=== PATIENT | female | born 1955 | race Two or more races ===

== ENCOUNTER 2017-08-10 16:41 | Emergency (ER) | payer MEDICAID ==
[~2017-08-10] VITALS: Ht 154.9 cm; Wt 93.4 kg
[~2017-08-10 16:41] MED LIST: CLON0.1T PO; HCTZ25T PO; INSU1INJ4 SC; INSUINJ SC; LOSA100T27 PO; METF-370 PO
[2017-08-10] MEDS ORDERED: cloNIDine HCL 0.1 MG TAB PO ONE (17:00)
[2017-08-10 17:47] LABS: Basophils # (auto) 0.1 uL; Basophils % (auto) 0.6 % (0.0-2.0); Eosinophils # (auto) 0.2 uL; Eosinophils % (auto) 1.6 % (0.0-7.0); Hematocrit 41.4 % (36.0-46.0); Hemoglobin 13.8 g/dL (12.2-16.2); Lymphocytes # (auto) 4.3 uL; Lymphocytes % (auto) 33.9 % (10.0-50.0); Mean Corpuscular Hemoglobin 30.6 pg (28.0-32.0); Mean Corpuscular Hgb Conc. 33.5 g/dL (32.0-36.0); Mean Corpuscular Volume 91.5 fL (80.0-100.0); Monocytes # (auto) 0.5 uL; Monocytes % (auto) 3.9 % (0.0-12.0); Neutrophils # (auto) 7.6 uL; Nucleated Red Blood Cells % 0.1 %; Platelet Count (auto) 410 10^3/uL (140-450); Red Blood Cells 4.52 10^6/uL (4.0-5.20); Red Cell Distribution Width 13.8 % (11.8-14.3); White Blood Cell 12.7 10^3/uL (4.4-10.8)
[2017-08-10 17:54] LABS: Alanine Aminotransferase 33 U/L (13-56); Albumin 3.9 g/dL (3.4-5.0); Anion Gap 7 (5-15); Aspartate Aminotransferase 19 U/L (15-37); Blood Urea Nitrogen 11 mg/dL (7-18); Calcium 9.1 mg/dL (8.5-10.1); Carbon Dioxide 28 mmol/L (21-32); Chloride 99 mmol/L (98-107); GFR African American 73 mL/min; GFR Non-African American 60 mL/min; Glucose 260 mg/dL (74-106); Potassium 3.9 mmol/L (3.5-5.1); Sodium 134 mmol/L (136-145)
[2017-08-10 17:59] LABS: Alkaline Phosphatase 103 U/L (45-117); Bilirubin, Total 0.2 mg/dL (0.2-1.0); Total Protein 8.4 g/dL (6.4-8.2)
[2017-08-10 21:00] VITALS: BP 147/79
== END 2017-08-10 21:39 | disposition home or self-care (01) ==
LOC: ER 16:44
DX: I10 Essential (primary) hypertension (principal); R07.9 Chest pain, unspecified; E11.9 Type 2 diabetes mellitus without complications; E78.5 Hyperlipidemia, unspecified; I25.2 Old myocardial infarction; Z79.4 Long term (current) use of insulin
CPT/HCPCS: 36415; 70450; 71046; 80053; 84484; 85025; 93005

== ENCOUNTER 2018-08-30 00:07 | Emergency (ER) | payer MEDICAID ==
[~2018-08-30] VITALS: Ht 154.9 cm; Wt 92.1 kg
[~2018-08-30 00:07] MED LIST changes: +LOSA-49 PO; -LOSA100T27 PO
[2018-08-30 00:32] VITALS: BP 169/77
== END 2018-08-30 02:30 | disposition left against medical advice (07) ==
LOC: ER 00:11
DX: I10 Essential (primary) hypertension (principal); Z53.21 Procedure and treatment not carried out due to patient leaving prior to being seen by health care provider
CPT/HCPCS: 93005

== ENCOUNTER 2021-07-07 00:42 | Inpatient (IN) | payer MEDICAID ==
[~2021-07-07] VITALS: Ht 162.6 cm; Wt 95.1 kg
[~2021-07-07 00:42] MED LIST changes: +AML5T PO; +ATOR20TA50 PO; -CLON0.1T PO; -HCTZ25T PO; +HYDR25TA5 PO; +INSU1INJ19 SC; -INSU1INJ4 SC; +INSU70IN3 SC; +LOSA-39 PO; -LOSA-49 PO; +METO1TAB77 PO
[2021-07-07 02:15] LABS: Basophils # (auto) 0.1 10 ^3/uL (0-0.2); Basophils % (auto) 1.1 % (0.0-2.0); Eosinophils # (auto) 0.3 10 ^3/uL (0-0.8); Eosinophils % (auto) 2.9 % (0.0-7.0); Hematocrit 40.8 % (36.0-46.0); Hemoglobin 13.8 g/dL (12.2-16.2); Lymphocytes # (auto) 5.8 10 ^3/uL (0.4-5.4); Lymphocytes % (auto) 52.5 % (10.0-50.0); Mean Corpuscular Hemoglobin 30.1 pg (28.0-32.0); Mean Corpuscular Hgb Conc. 33.8 g/dL (32.0-36.0); Mean Corpuscular Volume 89.2 fL (80.0-100.0); Monocytes # (auto) 0.5 10 ^3/uL (0-1.3); Monocytes % (auto) 4.6 % (0.0-12.0); Neutrophils # (auto) 4.3 10 ^3/uL (1.6-8.6); Neutrophils % (auto) 38.9 % (37.0-80.0); Nucleated Red Blood Cells % 0.2 %; Red Blood Cells 4.58 10^6/uL (4.0-5.20); Red Cell Distribution Width 13.6 % (11.8-14.3); White Blood Cell 11.1 10^3/uL (4.4-10.8)
[2021-07-07 02:53] LABS: Albumin 3.1 g/dL (3.4-5.0); Calcium 8.4 mg/dL (8.5-10.1); Potassium 3.1 mmol/L (3.5-5.1)
[2021-07-07 03:00] LABS: BUN/Creatinine Ratio 17.3; Bilirubin, Total 0.2 mg/dL (0.2-1.0); Total Protein 7.2 g/dL (6.4-8.2)
[2021-07-07] MEDS ORDERED: ASPirin 325 MG TAB PO ONE (05:45)
[2021-07-07] MEDS ORDERED: ONDANSETRON HCL 4 MG/2 ML VIAL IV PRN (06:00)
[2021-07-07] MEDS ORDERED: NITROGLYCERIN 0.4 MG SL TAB SL PRN (06:00)
[2021-07-07] MEDS ORDERED: MORPHINE SULFATE INJECTION 2 MG/ML SYRG IV PRN (06:00)
[2021-07-07] MEDS ORDERED: TEMAZEPAM 15 MG CAP PO PRN (06:00)
[2021-07-07] MEDS ORDERED: ACETAMINOPHEN 325 MG TAB PO PRN (06:00)
[2021-07-07] MEDS ORDERED: DEXTROSE (50%) 50ML SYRG IV PRN (06:00)
[2021-07-07] MEDS ORDERED: LABETALOL HCL 5 MG/ML 4ML SYRINGE IV ONE (06:15)
[2021-07-07] MEDS: InsuLIN REG 1unit/0.01ml Soln (100units/ml) SC SCH ×4 (07:00→21:52)
[2021-07-07] MEDS: ACCU-CHEK COMFORT CURVE STRIP VI SCH ×4 (07:02→21:52)
[2021-07-07] MEDS ORDERED: LOSARTAN POTASSIUM 50 MG TAB PO SCH (10:00)
[2021-07-07] MEDS: ASPirin 81 mg TAB PO SCH (10:27)
[2021-07-07] MEDS: HCTZ 25 MG TAB PO SCH (10:27)
[2021-07-07] MEDS: PANTOPRAZOLE 40 MG TAB PO SCH (10:27)
[2021-07-07] MEDS: METOPROLOL TARTRATE 50 MG TAB PO SCH ×2 (10:28→21:52)
[2021-07-07] MEDS: ENOXAPARIN SOD 40 MG/0.4 ML SYRINGE SC SCH (10:30)
[2021-07-07 21:47] VITALS: BP 175/97
[2021-07-07] MEDS: SACUBITRIL-VALSARTAN 24mg/26mg TAB PO SCH (21:51)
[2021-07-07] MEDS: ATORVASTATIN 20 MG TAB PO SCH (21:51)
[2021-07-07] MEDS ORDERED: cloNIDine HCL 0.1 MG TAB PO PRN (23:45)
[2021-07-07] MEDS ORDERED: cloNIDine HCL 0.1 MG TAB ONE (23:50)
[2021-07-08] MEDS ORDERED: cloNIDine HCL 0.1 MG TAB PO PRN
[2021-07-08 05:00] VITALS: BP 148/95
[2021-07-08 06:49] LABS: Basophils # (auto) 0.1 10 ^3/uL (0-0.2); Basophils % (auto) 0.9 % (0.0-2.0); Eosinophils # (auto) 0.4 10 ^3/uL (0-0.8); Eosinophils % (auto) 4.1 % (0.0-7.0); Hematocrit 41.6 % (36.0-46.0); Hemoglobin 14.1 g/dL (12.2-16.2); Lymphocytes # (auto) 4.5 10 ^3/uL (0.4-5.4); Lymphocytes % (auto) 47.5 % (10.0-50.0); Mean Corpuscular Hemoglobin 30.3 pg (28.0-32.0); Mean Corpuscular Hgb Conc. 33.8 g/dL (32.0-36.0); Mean Corpuscular Volume 89.8 fL (80.0-100.0); Monocytes # (auto) 0.5 10 ^3/uL (0-1.3); Monocytes % (auto) 5.4 % (0.0-12.0); Neutrophils % (auto) 42.1 % (37.0-80.0); Nucleated Red Blood Cells % 0.1 %; Red Blood Cells 4.64 10^6/uL (4.0-5.20); Red Cell Distribution Width 13.8 % (11.8-14.3); White Blood Cell 9.5 10^3/uL (4.4-10.8)
[2021-07-08 07:04] LABS: Albumin 2.9 g/dL (3.4-5.0); Calcium 8.8 mg/dL (8.5-10.1)
[2021-07-08] MEDS: ACCU-CHEK COMFORT CURVE STRIP VI SCH ×4 (07:07→22:39)
[2021-07-08 07:08] LABS: BUN/Creatinine Ratio 12.8; Bilirubin, Total 0.5 mg/dL (0.2-1.0); Total Protein 6.6 g/dL (6.4-8.2)
[2021-07-08] MEDS: InsuLIN REG 1unit/0.01ml Soln (100units/ml) SC SCH ×2 (07:08→13:29)
[2021-07-08 08:00] VITALS: BP 163/94
[2021-07-08] MEDS ORDERED: ADENOSINE 79 MG in GIVE UN-DILUTED 0 ML IV STA (08:48)
[2021-07-08 09:00] VITALS: BP 157/102
[2021-07-08] MEDS: METOPROLOL TARTRATE 50 MG TAB PO SCH ×2 (09:48→22:38)
[2021-07-08] MEDS: HCTZ 25 MG TAB PO SCH (09:51)
[2021-07-08] MEDS: SACUBITRIL-VALSARTAN 24mg/26mg TAB PO SCH ×2 (09:51→22:37)
[2021-07-08] MEDS: PANTOPRAZOLE 40 MG TAB PO SCH (09:52)
[2021-07-08] MEDS: ASPirin 81 mg TAB PO SCH (09:52)
[2021-07-08] MEDS: ENOXAPARIN SOD 40 MG/0.4 ML SYRINGE SC SCH (09:52)
[2021-07-08 13:00] VITALS: BP 155/99
[2021-07-08] MEDS ORDERED: DEXTROSE (50%) 50ML SYRG IV PRN (13:15)
[2021-07-08 17:00] VITALS: BP 157/103
[2021-07-08] MEDS ORDERED: InsuLIN REG 1unit/0.01ml Soln (100units/ml) SC ONE (17:45)
[2021-07-08 22:00] VITALS: BP 158/82
[2021-07-08] MEDS ORDERED: InsuLIN REG 1unit/0.01ml Soln (100units/ml) SC SCH (22:00)
[2021-07-08] MEDS: ATORVASTATIN 20 MG TAB PO SCH (22:38)
[2021-07-09] MEDS ORDERED: hydrALAZINE HCL 20 MG/ML VL IV PRN (04:45)
[2021-07-09 05:06] VITALS: BP 163/121
[2021-07-09 06:11] VITALS: BP 131/74
[2021-07-09] MEDS: ACCU-CHEK COMFORT CURVE STRIP VI SCH ×2 (06:26→11:52)
[2021-07-09] MEDS: InsuLIN REG 1unit/0.01ml Soln (100units/ml) SC SCH ×2 (06:27→11:30)
[2021-07-09 08:00] VITALS: BP 160/99
[2021-07-09] MEDS: ASPirin 81 mg TAB PO SCH (08:54)
[2021-07-09] MEDS: PANTOPRAZOLE 40 MG TAB PO SCH (08:55)
[2021-07-09] MEDS: SACUBITRIL-VALSARTAN 24mg/26mg TAB PO SCH (08:55)
[2021-07-09] MEDS: HCTZ 25 MG TAB PO SCH (08:55)
[2021-07-09] MEDS: ENOXAPARIN SOD 40 MG/0.4 ML SYRINGE SC SCH (08:56)
[2021-07-09 09:00] VITALS: BP 160/99
[2021-07-09] MEDS ORDERED: CARVEDILOL 12.5 MG TAB PO SCH (10:00)
[2021-07-09 12:30] VITALS: BP 148/66
== END 2021-07-09 12:40 | disposition home or self-care (01) | DRG 190 ==
LOC: ER 00:42 → TELE 05:57 → TELE-WESTW 18:11
PROVIDERS: ADMIT Nurse Practitioner; ATTEND Family Medicine
DX: I21.4 Non-ST elevation (NSTEMI) myocardial infarction (principal); E44.1 Mild protein-calorie malnutrition; R64 Cachexia; E11.9 Type 2 diabetes mellitus without complications; I11.9 Hypertensive heart disease without heart failure; I16.0 Hypertensive urgency; E78.00 Pure hypercholesterolemia, unspecified; E78.5 Hyperlipidemia, unspecified; E87.6 Hypokalemia; Z83.3 Family history of diabetes mellitus; Z20.822 Contact with and (suspected) exposure to COVID-19
CPT/HCPCS: 36415; 71045; 78452; 80053; 82962; 83880; 84484; 85025; 87426; 93005; 93017; 93306; 96372; 96374; G0378; J0153; J1815; J3490

== ENCOUNTER 2021-07-23 04:45 | Emergency (ER) | payer MEDICAID ==
[~2021-07-23] VITALS: Ht 165.1 cm; Wt 81.6 kg
[2021-07-23 06:09] LABS: Basophils # (auto) 0.1 10 ^3/uL (0-0.2); Basophils % (auto) 0.6 % (0.0-2.0); Eosinophils # (auto) 0.4 10 ^3/uL (0-0.8); Eosinophils % (auto) 3.8 % (0.0-7.0); Hematocrit 37.8 % (36.0-46.0); Hemoglobin 12.9 g/dL (12.2-16.2); Lymphocytes # (auto) 4.1 10 ^3/uL (0.4-5.4); Lymphocytes % (auto) 37.9 % (10.0-50.0); Mean Corpuscular Hemoglobin 29.9 pg (28.0-32.0); Mean Corpuscular Hgb Conc. 34.1 g/dL (32.0-36.0); Mean Corpuscular Volume 87.7 fL (80.0-100.0); Monocytes # (auto) 0.6 10 ^3/uL (0-1.3); Monocytes % (auto) 5.3 % (0.0-12.0); Neutrophils # (auto) 5.6 10 ^3/uL (1.6-8.6); Neutrophils % (auto) 52.4 % (37.0-80.0); Nucleated Red Blood Cells % 0.1 %; Red Blood Cells 4.31 10^6/uL (4.0-5.20); Red Cell Distribution Width 13.3 % (11.8-14.3); White Blood Cell 10.7 10^3/uL (4.4-10.8)
[2021-07-23 06:22] LABS: Albumin 3.3 g/dL (3.4-5.0); Calcium 8.8 mg/dL (8.5-10.1); Magnesium 2.6 mg/dL (1.6-2.6); Potassium 3.5 mmol/L (3.5-5.1)
[2021-07-23 06:26] LABS: INR 0.89 (0.9-1.15); Partial Thromboplastin Time 28.5 sec (23.6-33.0)
[2021-07-23 06:35] LABS: Bilirubin, Total 0.2 mg/dL (0.2-1.0)
[2021-07-23 07:22] LABS: BUN/Creatinine Ratio 16.3
[2021-07-23 07:31] VITALS: BP 157/90
[2021-07-23] MEDS ORDERED: cloNIDine HCL 0.1 MG TAB PO ONE (07:45)
== END 2021-07-23 08:05 | disposition home or self-care (01) ==
LOC: ER 04:45 → EDBD 04:45 → ER 08:05
DX: I16.0 Hypertensive urgency (principal); R42 Dizziness and giddiness; I10 Essential (primary) hypertension; E11.9 Type 2 diabetes mellitus without complications; E78.5 Hyperlipidemia, unspecified; Z79.4 Long term (current) use of insulin; Z79.899 Other long term (current) drug therapy
CPT/HCPCS: 36415; 71045; 80053; 83735; 83880; 84484; 85025; 85610; 85730; 93005

== ENCOUNTER 2021-09-23 16:39 | Emergency (ER) | payer MEDICAID ==
[~2021-09-23] VITALS: Ht 157.5 cm; Wt 90.7 kg
[2021-09-23] MEDS ORDERED: amLODIPine BESYLATE 5 MG TAB PO ONE (17:00)
[2021-09-23 18:31] LABS: Basophils # (auto) 0.2 10 ^3/uL (0-0.2); Basophils % (auto) 1.8 % (0.0-2.0); Eosinophils # (auto) 0.3 10 ^3/uL (0-0.8); Eosinophils % (auto) 3.4 % (0.0-7.0); Hematocrit 38.8 % (36.0-46.0); Hemoglobin 13.8 g/dL (12.2-16.2); Lymphocytes # (auto) 3.6 10 ^3/uL (0.4-5.4); Lymphocytes % (auto) 36.5 % (10.0-50.0); Mean Corpuscular Hgb Conc. 35.6 g/dL (32.0-36.0); Monocytes # (auto) 0.5 10 ^3/uL (0-1.3); Monocytes % (auto) 5.2 % (0.0-12.0); Neutrophils # (auto) 5.2 10 ^3/uL (1.6-8.6); Neutrophils % (auto) 53.1 % (37.0-80.0); Nucleated Red Blood Cells % 0.2 %; Red Blood Cells 4.46 10^6/uL (4.0-5.20); Red Cell Distribution Width 13.3 % (11.8-14.3); White Blood Cell 9.9 10^3/uL (4.4-10.8)
[2021-09-23 18:48] LABS: Albumin 3.5 g/dL (3.4-5.0); Calcium 9.1 mg/dL (8.5-10.1); Magnesium 2.3 mg/dL (1.6-2.6); Potassium 3.6 mmol/L (3.5-5.1)
[2021-09-23 18:54] LABS: BUN/Creatinine Ratio 18.5; Bilirubin, Total 0.2 mg/dL (0.2-1.0); Total Protein 7.3 g/dL (6.4-8.2)
[2021-09-23 19:02] VITALS: BP 172/94
== END 2021-09-23 19:54 | disposition home or self-care (01) ==
LOC: EDBD 16:39 → ER 16:44
DX: I16.0 Hypertensive urgency (principal); I10 Essential (primary) hypertension; R51.9 Headache, unspecified; E11.9 Type 2 diabetes mellitus without complications; E78.5 Hyperlipidemia, unspecified
CPT/HCPCS: 36415; 70450; 71045; 80053; 83735; 83880; 84484; 85025; 93005

== ENCOUNTER 2021-09-28 08:45 | Emergency (ER) | payer MEDICAID ==
[~2021-09-28] VITALS: Ht 152.4 cm; Wt 90.3 kg
[2021-09-28] MEDS ORDERED: ALPRAZolam 0.5 MG TAB PO ONE (09:00)
[2021-09-28] MEDS ORDERED: cloNIDine HCL 0.1 MG TAB PO ONE (09:30)
[2021-09-28 10:07] LABS: Basophils # (auto) 0.1 10 ^3/uL (0-0.2); Basophils % (auto) 1.1 % (0.0-2.0); Eosinophils # (auto) 0.3 10 ^3/uL (0-0.8); Eosinophils % (auto) 4.4 % (0.0-7.0); Hematocrit 39.2 % (36.0-46.0); Hemoglobin 13.4 g/dL (12.2-16.2); Lymphocytes # (auto) 2.7 10 ^3/uL (0.4-5.4); Lymphocytes % (auto) 34.9 % (10.0-50.0); Mean Corpuscular Hemoglobin 30.2 pg (28.0-32.0); Mean Corpuscular Hgb Conc. 34.1 g/dL (32.0-36.0); Mean Corpuscular Volume 88.5 fL (80.0-100.0); Monocytes # (auto) 0.4 10 ^3/uL (0-1.3); Monocytes % (auto) 5.7 % (0.0-12.0); Neutrophils # (auto) 4.1 10 ^3/uL (1.6-8.6); Neutrophils % (auto) 53.9 % (37.0-80.0); Nucleated Red Blood Cells % 0.1 %; Red Blood Cells 4.43 10^6/uL (4.0-5.20); Red Cell Distribution Width 13.3 % (11.8-14.3); White Blood Cell 7.7 10^3/uL (4.4-10.8)
[2021-09-28 10:11] LABS: Urine Bacteria NONE SEEN /hpf (None Seen); Urine Blood Negative /uL (Negative); Urine Mucus FEW (None Seen); Urine Specific Gravity 1.016 (1.001-1.035); Urine WBC 18 /hpf (0 - 5)
[2021-09-28 10:22] LABS: Albumin 3.5 g/dL (3.4-5.0); Calcium 8.8 mg/dL (8.5-10.1); Potassium 3.8 mmol/L (3.5-5.1)
[2021-09-28 10:27] LABS: BUN/Creatinine Ratio 14.3; Bilirubin, Total 0.4 mg/dL (0.2-1.0); Total Protein 7.2 g/dL (6.4-8.2)
[2021-09-28] MEDS ORDERED: NITR-87 PO (11:54)
[2021-09-28 12:20] VITALS: BP 132/73
== END 2021-09-28 12:25 | disposition home or self-care (01) ==
LOC: ER 08:45
DX: I16.0 Hypertensive urgency (principal); N39.0 Urinary tract infection, site not specified; E11.9 Type 2 diabetes mellitus without complications; E78.5 Hyperlipidemia, unspecified; Z79.4 Long term (current) use of insulin; Z79.899 Other long term (current) drug therapy
CPT/HCPCS: 36415; 80053; 81001; 84484; 85025

== ENCOUNTER 2021-10-08 20:46 | Emergency (ER) | payer MEDICAID ==
[~2021-10-08] VITALS: Ht 152.4 cm; Wt 90.3 kg
[~2021-10-08 20:46] MED LIST changes: +NITR-87 PO
[2021-10-08] MEDS ORDERED: ALPRAZolam 0.5 MG TAB PO ONE (21:15)
[2021-10-08 22:00] LABS: Basophils # (auto) 0.1 10 ^3/uL (0-0.2); Basophils % (auto) 0.8 % (0.0-2.0); Eosinophils # (auto) 0.3 10 ^3/uL (0-0.8); Eosinophils % (auto) 2.9 % (0.0-7.0); Hematocrit 37.8 % (36.0-46.0); Hemoglobin 13.9 g/dL (12.2-16.2); Lymphocytes % (auto) 43.1 % (10.0-50.0); Mean Corpuscular Hemoglobin 32.2 pg (28.0-32.0); Mean Corpuscular Volume 87.7 fL (80.0-100.0); Monocytes # (auto) 0.6 10 ^3/uL (0-1.3); Monocytes % (auto) 4.8 % (0.0-12.0); Neutrophils # (auto) 5.7 10 ^3/uL (1.6-8.6); Neutrophils % (auto) 48.4 % (37.0-80.0); Nucleated Red Blood Cells % 0.2 %; Red Blood Cells 4.31 10^6/uL (4.0-5.20); Red Cell Distribution Width 13.1 % (11.8-14.3); White Blood Cell 11.7 10^3/uL (4.4-10.8)
[2021-10-08 22:01] LABS: Mean Corpuscular Hgb Conc. 36.8 g/dL (32.0-36.0)
[2021-10-08 22:18] LABS: Albumin 3.4 g/dL (3.4-5.0); Potassium 3.8 mmol/L (3.5-5.1)
[2021-10-08 22:25] LABS: Bilirubin, Total 0.5 mg/dL (0.2-1.0)
[2021-10-08 22:58] LABS: BUN/Creatinine Ratio 13.3; Total Protein 7.2 g/dL (6.4-8.2)
[2021-10-09 03:21] VITALS: BP 155/82
[2021-10-09] MEDS ORDERED: ALPR0.5T PO (03:36)
== END 2021-10-09 03:15 | disposition home or self-care (01) ==
LOC: ER 20:46
DX: I16.0 Hypertensive urgency (principal); R07.9 Chest pain, unspecified; I10 Essential (primary) hypertension; E11.9 Type 2 diabetes mellitus without complications; E78.5 Hyperlipidemia, unspecified; Z79.4 Long term (current) use of insulin; Z79.899 Other long term (current) drug therapy
CPT/HCPCS: 36415; 70450; 80053; 83880; 84484; 85025

== ENCOUNTER 2022-01-09 19:25 | Emergency (ER) | payer MEDICAID ==
[~2022-01-09] VITALS: Ht 154.9 cm; Wt 92.5 kg
[~2022-01-09 19:25] MED LIST changes: +ALPR0.5T PO
[2022-01-09] MEDS ORDERED: cloNIDine HCL 0.1 MG TAB PO ONE (20:15)
[2022-01-09 20:16] LABS: Basophils # (auto) 0.1 10 ^3/uL (0-0.2); Eosinophils # (auto) 0.4 10 ^3/uL (0-0.8); Eosinophils % (auto) 3.6 % (0.0-7.0); Hematocrit 38.7 % (36.0-46.0); Hemoglobin 13.5 g/dL (12.2-16.2); Lymphocytes # (auto) 3.7 10 ^3/uL (0.4-5.4); Lymphocytes % (auto) 37.7 % (10.0-50.0); Mean Corpuscular Hemoglobin 30.7 pg (28.0-32.0); Mean Corpuscular Hgb Conc. 34.8 g/dL (32.0-36.0); Mean Corpuscular Volume 88.3 fL (80.0-100.0); Monocytes # (auto) 0.5 10 ^3/uL (0-1.3); Monocytes % (auto) 5.2 % (0.0-12.0); Neutrophils # (auto) 5.1 10 ^3/uL (1.6-8.6); Neutrophils % (auto) 52.5 % (37.0-80.0); Nucleated Red Blood Cells % 0.2 %; Red Blood Cells 4.39 10^6/uL (4.0-5.20); Red Cell Distribution Width 13.4 % (11.8-14.3); White Blood Cell 9.8 10^3/uL (4.4-10.8)
[2022-01-09 20:28] LABS: Albumin 3.4 g/dL (3.4-5.0); BUN/Creatinine Ratio 12.3; Calcium 8.5 mg/dL (8.5-10.1); Potassium 4.3 mmol/L (3.5-5.1)
[2022-01-09 20:31] LABS: Bilirubin, Total 0.2 mg/dL (0.2-1.0); Total Protein 6.9 g/dL (6.4-8.2)
[2022-01-10 02:38] VITALS: BP 193/100
[2022-01-10] MEDS ORDERED: cloNIDine HCL 0.1 MG TAB PO ONE (03:00)
== END 2022-01-10 04:20 | disposition left against medical advice (07) ==
LOC: ER 19:33
DX: I16.0 Hypertensive urgency (principal); E11.9 Type 2 diabetes mellitus without complications; E78.5 Hyperlipidemia, unspecified; Z79.4 Long term (current) use of insulin; Z79.899 Other long term (current) drug therapy
CPT/HCPCS: 36415; 70450; 71045; 80053; 84484; 85025; 93005

== ENCOUNTER 2022-01-18 20:16 | Inpatient (IN) | payer MEDICAID ==
[~2022-01-18] VITALS: Ht 154.9 cm; Wt 82.1 kg
[2022-01-18 21:07] LABS: Basophils # (auto) 0.3 10 ^3/uL (0-0.2); Eosinophils # (auto) 0.3 10 ^3/uL (0-0.8); Eosinophils % (auto) 2.6 % (0.0-7.0); Hematocrit 42.2 % (36.0-46.0); Hemoglobin 14.9 g/dL (12.2-16.2); Lymphocytes # (auto) 3.2 10 ^3/uL (0.4-5.4); Lymphocytes % (auto) 26.9 % (10.0-50.0); Mean Corpuscular Hemoglobin 31.3 pg (28.0-32.0); Mean Corpuscular Hgb Conc. 35.4 g/dL (32.0-36.0); Mean Corpuscular Volume 88.2 fL (80.0-100.0); Monocytes # (auto) 0.5 10 ^3/uL (0-1.3); Monocytes % (auto) 4.2 % (0.0-12.0); Neutrophils # (auto) 7.5 10 ^3/uL (1.6-8.6); Neutrophils % (auto) 63.3 % (37.0-80.0); Nucleated Red Blood Cells % 0.3 %; Red Blood Cells 4.78 10^6/uL (4.0-5.20); Red Cell Distribution Width 13.1 % (11.8-14.3); White Blood Cell 11.8 10^3/uL (4.4-10.8)
[2022-01-18 21:20] LABS: BUN/Creatinine Ratio 14.8; Calcium 8.7 mg/dL (8.5-10.1); Magnesium 2.4 mg/dL (1.6-2.6); Potassium 4.1 mmol/L (3.5-5.1)
[2022-01-18 21:24] LABS: INR 0.91 (0.9-1.15); Partial Thromboplastin Time 30.6 sec (23.6-33.0)
[2022-01-18 21:29] LABS: Bilirubin, Total 0.4 mg/dL (0.2-1.0)
[2022-01-19] MEDS ORDERED: LABETALOL HCL 5 MG/ML 4ML SYRINGE IV ONE (04:00)
[2022-01-19] MEDS ORDERED: HYDROcodone-ACET 5/325MG TAB PO PRN (04:45)
[2022-01-19] MEDS ORDERED: SODIUM CHLORIDE 0.9% 1,000 ML IV ONE (04:45)
[2022-01-19] MEDS ORDERED: NITROGLYCERIN 0.4 MG SL TAB SL PRN (04:45)
[2022-01-19] MEDS ORDERED: MORPHINE SULFATE INJ 2 MG/ml SYRG IV PRN (04:45)
[2022-01-19] MEDS ORDERED: hydrALAZINE HCL 10 MG TAB PO PRN (04:45)
[2022-01-19] MEDS ORDERED: ACETAMINOPHEN 325 MG TAB PO PRN (04:45)
[2022-01-19] MEDS ORDERED: ONDANSETRON HCL 4 MG/2 ML VIAL IV PRN (04:45)
[2022-01-19 05:38] LABS: Urine Bacteria NONE SEEN /hpf (None Seen); Urine Blood Negative /uL (Negative); Urine Specific Gravity 1.007 (1.001-1.035); Urine WBC 120 /hpf (0 - 5)
[2022-01-19] MEDS ORDERED: DEXTROSE (50%) 50ML SYRG IV ONE (06:30)
[2022-01-19] MEDS ORDERED: InsuLIN REG 1unit/0.01ml Soln (100units/ml) SC ONE (07:00)
[2022-01-19] MEDS ORDERED: ACCU-CHEK COMFORT CURVE STRIP VI ONE (07:00)
[2022-01-19] MEDS ORDERED: DEXTROSE (50%) 50ML SYRG IV PRN ×2 (09:00→17:30)
[2022-01-19 10:00] VITALS: BP 154/75
[2022-01-19] MEDS ORDERED: ASPirin-EC 81 mg tab PO SCH (10:00)
[2022-01-19] MEDS: FAMOTIDINE 20 MG TAB PO SCH ×2 (10:25→21:16)
[2022-01-19 10:30] VITALS: BP 154/75
[2022-01-19 11:15] LABS: Basophils # (auto) 0.1 10 ^3/uL (0-0.2); Basophils % (auto) 0.6 % (0.0-2.0); Eosinophils # (auto) 0.3 10 ^3/uL (0-0.8); Eosinophils % (auto) 2.5 % (0.0-7.0); Hematocrit 40.7 % (36.0-46.0); Hemoglobin 13.9 g/dL (12.2-16.2); Lymphocytes # (auto) 3.5 10 ^3/uL (0.4-5.4); Lymphocytes % (auto) 30.4 % (10.0-50.0); Mean Corpuscular Hemoglobin 30.2 pg (28.0-32.0); Mean Corpuscular Hgb Conc. 34.1 g/dL (32.0-36.0); Mean Corpuscular Volume 88.6 fL (80.0-100.0); Monocytes # (auto) 0.8 10 ^3/uL (0-1.3); Monocytes % (auto) 6.4 % (0.0-12.0); Neutrophils % (auto) 60.1 % (37.0-80.0); Nucleated Red Blood Cells % 0.1 %; Red Cell Distribution Width 13.4 % (11.8-14.3); White Blood Cell 11.7 10^3/uL (4.4-10.8)
[2022-01-19 11:56] LABS: BUN/Creatinine Ratio 17.4; Calcium 8.8 mg/dL (8.5-10.1); Potassium 3.6 mmol/L (3.5-5.1)
[2022-01-19 13:00] VITALS: BP 121/76
[2022-01-19 13:40] LABS: Protein, Urine 62.1 mg/dL (0.0-11.9)
[2022-01-19] MEDS ORDERED: LOSARTAN POTASSIUM 50 MG TAB PO SCH (14:00)
[2022-01-19 14:09] LABS: BUN/Creatinine Ratio 15.5; Calcium 9.6 mg/dL (8.5-10.1); Potassium 4.3 mmol/L (3.5-5.1)
[2022-01-19 14:30] LABS: Basophils # (auto) 0.1 10 ^3/uL (0-0.2); Basophils % (auto) 0.8 % (0.0-2.0); Eosinophils # (auto) 0.3 10 ^3/uL (0-0.8); Eosinophils % (auto) 2.1 % (0.0-7.0); Hematocrit 44.7 % (36.0-46.0); Hemoglobin 14.9 g/dL (12.2-16.2); Lymphocytes # (auto) 3.7 10 ^3/uL (0.4-5.4); Lymphocytes % (auto) 28.5 % (10.0-50.0); Mean Corpuscular Hemoglobin 29.8 pg (28.0-32.0); Mean Corpuscular Hgb Conc. 33.4 g/dL (32.0-36.0); Mean Corpuscular Volume 89.1 fL (80.0-100.0); Monocytes # (auto) 0.7 10 ^3/uL (0-1.3); Monocytes % (auto) 5.6 % (0.0-12.0); Neutrophils # (auto) 8.2 10 ^3/uL (1.6-8.6); Nucleated Red Blood Cells % 0.2 %; Red Blood Cells 5.02 10^6/uL (4.0-5.20); Red Cell Distribution Width 13.2 % (11.8-14.3)
[2022-01-19] MEDS ORDERED: levoFLOXacin 500 MG TAB PO ONE (17:30)
[2022-01-19] MEDS ORDERED: amLODIPine BESYLATE 5 MG TAB PO SCH (17:30)
[2022-01-19] MEDS ORDERED: LEVO500T31 PO (17:40)
[2022-01-19 18:36] LABS: BUN/Creatinine Ratio 16.7; Calcium 9.4 mg/dL (8.5-10.1); Potassium 4.1 mmol/L (3.5-5.1)
[2022-01-19 18:37] LABS: Basophils # (auto) 0.2 10 ^3/uL (0-0.2); Basophils % (auto) 1.4 % (0.0-2.0); Eosinophils # (auto) 0.3 10 ^3/uL (0-0.8); Eosinophils % (auto) 2.9 % (0.0-7.0); Hematocrit 41.9 % (36.0-46.0); Hemoglobin 14.4 g/dL (12.2-16.2); Lymphocytes # (auto) 3.7 10 ^3/uL (0.4-5.4); Lymphocytes % (auto) 30.7 % (10.0-50.0); Mean Corpuscular Hemoglobin 30.5 pg (28.0-32.0); Mean Corpuscular Hgb Conc. 34.4 g/dL (32.0-36.0); Mean Corpuscular Volume 88.7 fL (80.0-100.0); Monocytes # (auto) 0.6 10 ^3/uL (0-1.3); Monocytes % (auto) 5.1 % (0.0-12.0); Neutrophils # (auto) 7.1 10 ^3/uL (1.6-8.6); Neutrophils % (auto) 59.9 % (37.0-80.0); Red Blood Cells 4.72 10^6/uL (4.0-5.20); Red Cell Distribution Width 13.3 % (11.8-14.3); White Blood Cell 11.9 10^3/uL (4.4-10.8)
[2022-01-19 18:45] VITALS: BP 121/76
[2022-01-19] MEDS ORDERED: METOPROLOL TARTRATE 50 MG TAB PO SCH (22:00)
[2022-01-19] MEDS ORDERED: ATORVASTATIN 20 MG TAB PO SCH (22:00)
[2022-01-19] MEDS ORDERED: InsuLIN REG 1unit/0.01ml Soln (100units/ml) SC SCH (22:00)
[2022-01-19] MEDS ORDERED: ACCU-CHEK COMFORT CURVE STRIP VI SCH (22:00)
[2022-01-20] MEDS ORDERED: InsuLIN REG 1unit/0.01ml Soln (100units/ml) SC SCH (07:00)
[2022-01-20] MEDS ORDERED: ALPRAZolam 0.5 MG TAB PO SCH (10:00)
[2022-01-20] MEDS ORDERED: levoFLOXacin 500 MG TAB PO SCH (10:00)
== END 2022-01-19 22:08 | disposition home or self-care (01) | DRG 190 ==
LOC: ER 20:16 → EDBD 20:16 → TELE 01-19 04:31 → TELE-WESTW 01-19 10:19
PROVIDERS: ADMIT Nurse Practitioner Family; ATTEND Nurse Practitioner Family
DX: R07.89 Other chest pain (principal); I21.A1 Myocardial infarction type 2; N17.9 Acute kidney failure, unspecified; Z20.822 Contact with and (suspected) exposure to COVID-19; I24.9 Acute ischemic heart disease, unspecified; E66.9 Obesity, unspecified; I12.9 Hypertensive chronic kidney disease with stage 1 through stage 4 chronic kidney disease, or unspecified chronic kidney disease; E78.5 Hyperlipidemia, unspecified; I16.0 Hypertensive urgency; N18.9 Chronic kidney disease, unspecified; E11.22 Type 2 diabetes mellitus with diabetic chronic kidney disease; Z79.899 Other long term (current) drug therapy; Z82.49 Family history of ischemic heart disease and other diseases of the circulatory system; Z83.3 Family history of diabetes mellitus; Z87.891 Personal history of nicotine dependence; Z68.34 Body mass index [BMI] 34.0-34.9, adult
CPT/HCPCS: 36415; 71045; 76775; 80048; 80053; 81001; 82570; 82962; 83735; 83880; 84156; 84443; 84484; 85025; 85379; 85610; 85730; 87086; 93005; 93306; 96361; 96374; 99291; G0378; J1815; J3490

== ENCOUNTER 2022-08-08 22:10 | Inpatient (IN) | payer MEDICAID ==
[~2022-08-08] VITALS: Ht 152.4 cm; Wt 90.0 kg
[~2022-08-08 22:10] MED LIST changes: +LEVO500T31 PO
[2022-08-08] MEDS ORDERED: SODIUM CHLORIDE 0.9% 1,000 ML IV ONE (22:30)
[2022-08-08 23:26] LABS: Basophils # (auto) 0.1 10 ^3/uL (0-0.2); Basophils % (auto) 1.4 % (0.0-2.0); Eosinophils # (auto) 0.4 10 ^3/uL (0-0.8); Hematocrit 39.4 % (36.0-46.0); Hemoglobin 13.6 g/dL (12.2-16.2); Lymphocytes # (auto) 2.5 10 ^3/uL (0.4-5.4); Lymphocytes % (auto) 32.6 % (10.0-50.0); Mean Corpuscular Hemoglobin 30.4 pg (28.0-32.0); Mean Corpuscular Hgb Conc. 34.4 g/dL (32.0-36.0); Mean Corpuscular Volume 88.2 fL (80.0-100.0); Monocytes # (auto) 0.4 10 ^3/uL (0-1.3); Monocytes % (auto) 5.1 % (0.0-12.0); Neutrophils # (auto) 4.4 10 ^3/uL (1.6-8.6); Neutrophils % (auto) 55.9 % (37.0-80.0); Red Blood Cells 4.46 10^6/uL (4.0-5.20); Red Cell Distribution Width 13.4 % (11.8-14.3); White Blood Cell 7.8 10^3/uL (4.4-10.8)
[2022-08-08 23:27] LABS: Urine Bacteria NONE SEEN /hpf (None Seen); Urine Blood Negative /uL (Negative); Urine Specific Gravity 1.018 (1.001-1.035); Urine WBC 47 /hpf (0 - 5); Urine WBC Clumps PRESENT /hpf (None Seen)
[2022-08-08 23:33] LABS: Albumin 3.5 g/dL (3.4-5.0); BUN/Creatinine Ratio 17.7; Calcium 8.9 mg/dL (8.5-10.1); Magnesium 2.2 mg/dL (1.6-2.6); Potassium 4.1 mmol/L (3.5-5.1)
[2022-08-08 23:36] LABS: Bilirubin, Total 0.2 mg/dL (0.2-1.0); Total Protein 6.8 g/dL (6.4-8.2)
[2022-08-08 23:37] LABS: INR 0.87 (0.9-1.15); Partial Thromboplastin Time 28.1 sec (24.6-33.4)
[2022-08-09] MEDS ORDERED: ONDANSETRON HCL 4 MG/2 ML VIAL IV PRN (01:45)
[2022-08-09] MEDS ORDERED: NITROGLYCERIN 0.4 MG SL TAB SL PRN (01:45)
[2022-08-09] MEDS ORDERED: LORazepam 0.5 MG TAB PO PRN (01:45)
[2022-08-09] MEDS ORDERED: DEXTROSE (50%) 50ML SYRG IV PRN (01:45)
[2022-08-09] MEDS ORDERED: ZOLPIDEM TARTRATE 5 MG TAB PO PRN (01:45)
[2022-08-09] MEDS ORDERED: MORPHINE SULFATE 4 MG/ML SYR/VIAL IV PRN (01:45)
[2022-08-09] MEDS ORDERED: MAALOX PLUS or MAALOX 30 ML PO ONE (01:45)
[2022-08-09] MEDS: cefTRIAXone 1GM/50ML D5W 50 ML IV SCH ×2 (02:32→10:09)
[2022-08-09] MEDS: SODIUM CHLORIDE 0.9% 1,000 ML IV SCH ×2 (02:33→15:10)
[2022-08-09 05:16] LABS: Basophils # (auto) 0.1 10 ^3/uL (0-0.2); Basophils % (auto) 0.8 % (0.0-2.0); Eosinophils # (auto) 0.4 10 ^3/uL (0-0.8); Eosinophils % (auto) 4.5 % (0.0-7.0); Hematocrit 37.3 % (36.0-46.0); Hemoglobin 12.7 g/dL (12.2-16.2); Lymphocytes # (auto) 3.9 10 ^3/uL (0.4-5.4); Lymphocytes % (auto) 43.9 % (10.0-50.0); Mean Corpuscular Hemoglobin 29.9 pg (28.0-32.0); Mean Corpuscular Volume 87.9 fL (80.0-100.0); Monocytes # (auto) 0.5 10 ^3/uL (0-1.3); Monocytes % (auto) 5.2 % (0.0-12.0); Neutrophils % (auto) 45.6 % (37.0-80.0); Red Blood Cells 4.24 10^6/uL (4.0-5.20); Red Cell Distribution Width 13.4 % (11.8-14.3); White Blood Cell 8.8 10^3/uL (4.4-10.8)
[2022-08-09 05:32] LABS: BUN/Creatinine Ratio 17.1; Calcium 8.6 mg/dL (8.5-10.1); Potassium 4.2 mmol/L (3.5-5.1)
[2022-08-09] MEDS: ACCU-CHEK COMFORT CURVE STRIP VI SCH ×4 (06:49→22:01)
[2022-08-09] MEDS: InsuLIN REG 1unit/0.01ml Soln (100units/ml) SC SCH ×3 (07:00→18:05)
[2022-08-09] MEDS ORDERED: ENOXAPARIN SOD 80 MG/0.8ML SYRINGE SC SCH (10:00)
[2022-08-09] MEDS ORDERED: METOPROLOL TARTRATE 25 MG TAB PO SCH (10:00)
[2022-08-09] MEDS ORDERED: CLOPIDOGREL BISULFATE 75 MG TAB PO SCH (10:00)
[2022-08-09] MEDS: DOCUSATE SOD 100 MG CAP PO SCH (10:10)
[2022-08-09] MEDS: ASPirin 81 mg TAB PO SCH (10:10)
[2022-08-09] MEDS: LISINOPRIL 10 MG TAB PO SCH (10:11)
[2022-08-09 11:51] LABS: Cholesterol 170 mg/dL (< 200); HDL Cholesterol 31 mg/dL (40-59); Triglycerides 629 mg/dL (< 150)
[2022-08-09] MEDS: ACETAMINOPHEN 325 MG TAB PO PRN (18:05)
[2022-08-09] MEDS: INSULIN LANTUS (GLARGINE) 1 /0.01ml (100units/ml) SC SCH (21:56)
[2022-08-09] MEDS: ATORVASTATIN 20 MG TAB PO SCH (21:56)
[2022-08-09] MEDS: METOPROLOL TARTRATE 25 MG TAB PO SCH (21:59)
[2022-08-09] MEDS ORDERED: InsuLIN REG 1unit/0.01ml Soln (100units/ml) SC SCH (22:00)
[2022-08-09] MEDS ORDERED: INSULIN LANTUS (GLARGINE) 1 /0.01ml (100units/ml) SC SCH (22:00)
[2022-08-10] MEDS: SODIUM CHLORIDE 0.9% 1,000 ML IV SCH (04:25)
[2022-08-10] MEDS: ACCU-CHEK COMFORT CURVE STRIP VI SCH ×4 (06:46→22:15)
[2022-08-10] MEDS: InsuLIN REG 1unit/0.01ml Soln (100units/ml) SC SCH ×3 (06:49→17:44)
[2022-08-10 07:23] LABS: Calcium 8.9 mg/dL (8.5-10.1)
[2022-08-10 07:25] LABS: BUN/Creatinine Ratio 16.7
[2022-08-10 07:29] LABS: Basophils # (auto) 0.1 10 ^3/uL (0-0.2); Basophils % (auto) 1.1 % (0.0-2.0); Eosinophils # (auto) 0.5 10 ^3/uL (0-0.8); Eosinophils % (auto) 5.5 % (0.0-7.0); Hematocrit 42.7 % (36.0-46.0); Hemoglobin 14.4 g/dL (12.2-16.2); Lymphocytes # (auto) 3.5 10 ^3/uL (0.4-5.4); Lymphocytes % (auto) 41.3 % (10.0-50.0); Mean Corpuscular Hgb Conc. 33.7 g/dL (32.0-36.0); Mean Corpuscular Volume 89.1 fL (80.0-100.0); Monocytes # (auto) 0.5 10 ^3/uL (0-1.3); Monocytes % (auto) 5.8 % (0.0-12.0); Neutrophils # (auto) 3.9 10 ^3/uL (1.6-8.6); Neutrophils % (auto) 46.3 % (37.0-80.0); Red Blood Cells 4.79 10^6/uL (4.0-5.20); Red Cell Distribution Width 13.7 % (11.8-14.3); White Blood Cell 8.5 10^3/uL (4.4-10.8)
[2022-08-10] MEDS: hydrALAZINE HCL 20 MG/ML VL IV PRN ×2 (08:17→15:38)
[2022-08-10] MEDS: ACETAMINOPHEN 325 MG TAB PO PRN (08:17)
[2022-08-10] MEDS: DOCUSATE SOD 100 MG CAP PO SCH (10:46)
[2022-08-10] MEDS: ASPirin 81 mg TAB PO SCH (10:46)
[2022-08-10] MEDS: LISINOPRIL 10 MG TAB PO SCH ×2 (10:46→22:14)
[2022-08-10] MEDS: ENOXAPARIN SOD 40 MG/0.4 ML SYRINGE SC SCH (10:46)
[2022-08-10] MEDS: METOPROLOL TARTRATE 25 MG TAB PO SCH ×2 (10:47→22:14)
[2022-08-10] MEDS: cefTRIAXone 1GM/50ML D5W 50 ML IV SCH (10:52)
[2022-08-10 10:57] VITALS: BP 178/79
[2022-08-10] MEDS: INSULIN LANTUS (GLARGINE) 1 /0.01ml (100units/ml) SC SCH (11:12)
[2022-08-10 11:40] VITALS: BP 179/96
[2022-08-10 12:30] VITALS: BP 173/80
[2022-08-10] MEDS ORDERED: amLODIPine BESYLATE 5 MG TAB PO ONE (14:00)
[2022-08-10] MEDS ORDERED: HYDROcodone-ACET 5/325MG TAB PO PRN (14:15)
[2022-08-10] MEDS ORDERED: KETOROLAC TROMETH 30 MG/ML 1ML VIAL IV PRN (16:00)
[2022-08-10 16:30] VITALS: BP 177/78
[2022-08-10 22:00] VITALS: BP 155/73
[2022-08-10] MEDS ORDERED: INSULIN LANTUS (GLARGINE) 1 /0.01ml (100units/ml) SC SCH (22:00)
[2022-08-10] MEDS: ATORVASTATIN 20 MG TAB PO SCH (22:13)
[2022-08-10] MEDS: ALPRAZolam 0.25 MG TAB PO SCH (22:14)
[2022-08-11 05:00] VITALS: BP 146/69
[2022-08-11] MEDS: ACCU-CHEK COMFORT CURVE STRIP VI SCH ×3 (06:17→17:35)
[2022-08-11] MEDS: InsuLIN REG 1unit/0.01ml Soln (100units/ml) SC SCH ×3 (06:18→17:35)
[2022-08-11 09:00] VITALS: BP 146/67
[2022-08-11] MEDS ORDERED: INSULIN LANTUS (GLARGINE) 1 /0.01ml (100units/ml) SC SCH (10:00)
[2022-08-11] MEDS: ALPRAZolam 0.25 MG TAB PO SCH (10:50)
[2022-08-11] MEDS: cefTRIAXone 1GM/50ML D5W 50 ML IV SCH (11:24)
[2022-08-11] MEDS: METOPROLOL TARTRATE 25 MG TAB PO SCH (11:25)
[2022-08-11] MEDS: DOCUSATE SOD 100 MG CAP PO SCH (11:26)
[2022-08-11] MEDS: ASPirin 81 mg TAB PO SCH (11:27)
[2022-08-11] MEDS: ENOXAPARIN SOD 40 MG/0.4 ML SYRINGE SC SCH (11:27)
[2022-08-11] MEDS: LISINOPRIL 10 MG TAB PO SCH (11:27)
[2022-08-11 13:00] VITALS: BP 140/61
[2022-08-11] MEDS ORDERED: amLODIPine BESYLATE 5 MG TAB PO SCH (14:00)
[2022-08-11 15:16] VITALS: BP 140/61
== END 2022-08-11 17:28 | disposition home or self-care (01) | DRG 420 ==
LOC: EDBD 22:10 → ER 22:14 → TELE 08-09 01:41 → TELE-CENTR 08-10 10:04
PROVIDERS: ADMIT Hospitalist; ATTEND Hospitalist
DX: E11.65 Type 2 diabetes mellitus with hyperglycemia (principal); I21.A1 Myocardial infarction type 2; N17.9 Acute kidney failure, unspecified; E07.9 Disorder of thyroid, unspecified; E66.9 Obesity, unspecified; I10 Essential (primary) hypertension; Z20.822 Contact with and (suspected) exposure to COVID-19; I16.0 Hypertensive urgency; N39.0 Urinary tract infection, site not specified; Z79.4 Long term (current) use of insulin; Z83.3 Family history of diabetes mellitus; Z82.49 Family history of ischemic heart disease and other diseases of the circulatory system; Z68.38 Body mass index [BMI] 38.0-38.9, adult
CPT/HCPCS: 36415; 70450; 71045; 80048; 80053; 80061; 81001; 82962; 83036; 83735; 83880; 84443; 84484; 85025; 85610; 85730; 87426; 93005; 93306; 96360; G0378; J0696; J1815; J1885

== ENCOUNTER 2023-02-09 15:23 | Emergency (ER) | payer OTHER, MEDICAID ==
[~2023-02-09] VITALS: Ht 154.9 cm; Wt 89.6 kg
[~2023-02-09 15:23] MED LIST changes: -LEVO500T31 PO; -LOSA-39 PO; +LOSA100T58 PO; -NITR-87 PO
[2023-02-09] MEDS ORDERED: ACCU-CHEK COMFORT CURVE STRIP VI ONE (16:15)
[2023-02-09 17:08] LABS: Basophils # (auto) 0.1 10 ^3/uL (0-0.2); Basophils % (auto) 1.3 % (0.0-2.0); Eosinophils # (auto) 0.4 10 ^3/uL (0-0.8); Eosinophils % (auto) 3.9 % (0.0-7.0); Hemoglobin 14.1 g/dL (12.2-16.2); Lymphocytes # (auto) 3.1 10 ^3/uL (0.4-5.4); Lymphocytes % (auto) 32.5 % (10.0-50.0); Mean Corpuscular Hemoglobin 30.2 pg (28.0-32.0); Mean Corpuscular Hgb Conc. 34.3 g/dL (32.0-36.0); Monocytes # (auto) 0.4 10 ^3/uL (0-1.3); Monocytes % (auto) 4.2 % (0.0-12.0); Neutrophils # (auto) 5.5 10 ^3/uL (1.6-8.6); Neutrophils % (auto) 58.1 % (37.0-80.0); Nucleated Red Blood Cells % 0.2 %; Red Blood Cells 4.66 10^6/uL (4.0-5.20); Red Cell Distribution Width 14.2 % (11.8-14.3); White Blood Cell 9.4 10^3/uL (4.4-10.8)
[2023-02-09 17:14] LABS: Urine Bacteria NONE SEEN /hpf (None Seen); Urine Blood Negative /uL (Negative); Urine Specific Gravity 1.008 (1.001-1.035); Urine WBC 4 /hpf (0 - 5)
[2023-02-09] MEDS ORDERED: ALPRAZolam 0.5 MG TAB PO ONE (17:45)
[2023-02-09 17:50] LABS: Albumin 3.7 g/dL (3.4-5.0); Calcium 9.1 mg/dL (8.5-10.1); Potassium 4.1 mmol/L (3.5-5.1)
[2023-02-09 17:53] LABS: BUN/Creatinine Ratio 16.7 (10.0-20.0); Bilirubin, Total 0.2 mg/dL (0.2-1.0); Total Protein 7.7 g/dL (6.4-8.2)
[2023-02-09] MEDS ORDERED: ALPR0.25 PO (19:28)
[2023-02-09 19:30] VITALS: BP 165/77
== END 2023-02-09 19:47 | disposition home or self-care (01) ==
LOC: ER 15:23
DX: I16.0 Hypertensive urgency (principal); I10 Essential (primary) hypertension; E11.9 Type 2 diabetes mellitus without complications; E78.5 Hyperlipidemia, unspecified; M62.838 Other muscle spasm; F41.9 Anxiety disorder, unspecified
CPT/HCPCS: 36415; 70450; 71045; 80053; 81001; 83880; 84484; 85025; 87040; 93005

== ENCOUNTER 2023-04-05 08:22 | Inpatient (IN) | payer OTHER, MEDICAID ==
[~2023-04-05] VITALS: Ht 154.9 cm; Wt 91.9 kg
[~2023-04-05 08:22] MED LIST changes: +ALPR0.25 PO
[2023-04-05] MEDS ORDERED: cloNIDine HCL 0.1 MG TAB PO ONE (08:45)
[2023-04-05 09:27] LABS: Basophils # (auto) 0.1 10 ^3/uL (0-0.2); Basophils % (auto) 0.9 % (0.0-2.0); Eosinophils # (auto) 0.3 10 ^3/uL (0-0.8); Eosinophils % (auto) 4.3 % (0.0-7.0); Hematocrit 39.8 % (36.0-46.0); Hemoglobin 13.2 g/dL (12.2-16.2); Lymphocytes % (auto) 39.3 % (10.0-50.0); Mean Corpuscular Hemoglobin 29.6 pg (28.0-32.0); Mean Corpuscular Hgb Conc. 33.2 g/dL (32.0-36.0); Monocytes # (auto) 0.4 10 ^3/uL (0-1.3); Monocytes % (auto) 5.8 % (0.0-12.0); Neutrophils # (auto) 3.8 10 ^3/uL (1.6-8.6); Neutrophils % (auto) 49.7 % (37.0-80.0); Nucleated Red Blood Cells % 0.1 %; Red Blood Cells 4.47 10^6/uL (4.0-5.20); Red Cell Distribution Width 13.4 % (11.8-14.3); White Blood Cell 7.6 10^3/uL (4.4-10.8)
[2023-04-05 09:50] LABS: INR 0.98 (0.9-1.15); Partial Thromboplastin Time 31.3 SEC (24.5-34.5); Prothrombin Time 10.3 sec (9.3-11.8)
[2023-04-05 10:05] LABS: Alanine Aminotransferase 13 U/L (7-40); Albumin 4.1 g/dL (3.2-4.8); Alkaline Phosphatase 88 U/L (46-116); Anion Gap 5.6 (5-15); Aspartate Aminotransferase 9 U/L (13-40); BUN/Creatinine Ratio 10.8 (10.0-20.0); Bilirubin, Total 0.4 mg/dL (0.2-1.0); Blood Urea Nitrogen 9 mg/dL (9-23); Calcium 9.1 mg/dL (8.5-10.1); Carbon Dioxide 27.4 mmol/L (20-30); Chloride 104 mmol/L (98-107); Glucose 281 mg/dL (74-106); Magnesium 1.8 mg/dL (1.6-2.6); Sodium 137 mmol/L (136-145); Total Protein 6.7 g/dL (5.7-8.2)
[2023-04-05] MEDS ORDERED: ASPirin 325 MG TAB PO ONE (11:30)
[2023-04-05] MEDS ORDERED: NITROGLYCERIN 0.4 MG SL TAB SL ONE (11:30)
[2023-04-05 12:00] VITALS: PULSE 72; RESP 13; O2SAT 96
[2023-04-05] MEDS ORDERED: LEV25T PO (13:26)
[2023-04-05] MEDS ORDERED: CLON0.2T PO (13:26)
[2023-04-05] MEDS ORDERED: DEXTROSE (50%) 50ML SYRG IV PRN (13:30)
[2023-04-05] MEDS ORDERED: NITROGLYCERIN 0.4 MG SL TAB SL PRN (13:30)
[2023-04-05] MEDS ORDERED: MORPHINE SULFATE INJ 2 MG/ml SYRG IV PRN (13:30)
[2023-04-05] MEDS: hydrALAZINE HCL 20 MG/ML VL IV PRN (14:10)
[2023-04-05] MEDS: ACCU-CHEK COMFORT CURVE STRIP VI SCH ×2 (16:43→22:00)
[2023-04-05] MEDS: InsuLIN REG 1unit/0.01ml Soln (100units/ml) SC SCH ×2 (16:47→22:51)
[2023-04-05] MEDS: ACETAMINOPHEN 325 MG TAB PO PRN (22:47)
[2023-04-05] MEDS: cloNIDine HCL 0.1 MG TAB PO SCH (22:47)
[2023-04-05] MEDS: METOPROLOL TARTRATE 50 MG TAB PO SCH (22:48)
[2023-04-05] MEDS: ATORVASTATIN 20 MG TAB PO SCH (22:48)
[2023-04-06 01:43] VITALS: PULSE 66; RESP 15; O2SAT 95
[2023-04-06 06:55] LABS: Basophils # (auto) 0.1 10 ^3/uL (0-0.2); Basophils % (auto) 0.7 % (0.0-2.0); Eosinophils # (auto) 0.4 10 ^3/uL (0-0.8); Eosinophils % (auto) 4.4 % (0.0-7.0); Hematocrit 38.6 % (36.0-46.0); Hemoglobin 13.2 g/dL (12.2-16.2); Lymphocytes # (auto) 4.2 10 ^3/uL (0.4-5.4); Lymphocytes % (auto) 44.7 % (10.0-50.0); Mean Corpuscular Hemoglobin 30.1 pg (28.0-32.0); Mean Corpuscular Hgb Conc. 34.1 g/dL (32.0-36.0); Mean Corpuscular Volume 88.1 fL (80.0-100.0); Monocytes # (auto) 0.5 10 ^3/uL (0-1.3); Monocytes % (auto) 5.8 % (0.0-12.0); Neutrophils # (auto) 4.2 10 ^3/uL (1.6-8.6); Neutrophils % (auto) 44.4 % (37.0-80.0); Nucleated Red Blood Cells % 0.1 %; Red Blood Cells 4.38 10^6/uL (4.0-5.20); Red Cell Distribution Width 14.3 % (11.8-14.3); White Blood Cell 9.5 10^3/uL (4.4-10.8)
[2023-04-06 07:04] LABS: Alanine Aminotransferase 13 U/L (7-40); Albumin 3.9 g/dL (3.2-4.8); Alkaline Phosphatase 82 U/L (46-116); Aspartate Aminotransferase < 8 U/L (13-40); BUN/Creatinine Ratio 10.8 (10.0-20.0); Blood Urea Nitrogen 9 mg/dL (9-23); Calcium 9.2 mg/dL (8.7-10.4); Chloride 107 mmol/L (98-107); Cholesterol 176 mg/dL (< 200); Glucose 168 mg/dL (74-106); Potassium 3.7 mmol/L (3.5-5.1); Sodium 140 mmol/L (136-145); Triglycerides 475 mg/dL (< 150)
[2023-04-06 07:05] LABS: Bilirubin, Total 0.4 mg/dL (0.2-1.0); Total Protein 6.6 g/dL (5.7-8.2)
[2023-04-06] MEDS: ACCU-CHEK COMFORT CURVE STRIP VI SCH ×4 (07:13→22:00)
[2023-04-06] MEDS: InsuLIN REG 1unit/0.01ml Soln (100units/ml) SC SCH ×4 (07:16→21:10)
[2023-04-06] MEDS: hydrALAZINE HCL 20 MG/ML VL IV PRN (07:16)
[2023-04-06 08:00] VITALS: PULSE 71; RESP 16; O2SAT 95
[2023-04-06] MEDS ORDERED: MAGNESIUM SULFATE 1GM/100ML 100 ML IV ONE (08:00)
[2023-04-06] MEDS: ACETAMINOPHEN 325 MG TAB PO PRN ×2 (08:17→20:10)
[2023-04-06] MEDS ORDERED: ASPirin 81 mg TAB PO SCH (10:00)
[2023-04-06 10:15] LABS: HDL Cholesterol 37 mg/dL (40-59)
[2023-04-06] MEDS: PANTOPRAZOLE 40 MG TAB PO SCH (10:26)
[2023-04-06] MEDS: LEVOTHYROXINE SODIUM 25 MCG TAB PO SCH (10:26)
[2023-04-06] MEDS: cloNIDine HCL 0.1 MG TAB PO SCH (10:27)
[2023-04-06] MEDS: LOSARTAN POTASSIUM 50 MG TAB PO SCH (10:28)
[2023-04-06] MEDS: METOPROLOL TARTRATE 50 MG TAB PO SCH ×2 (10:29→21:14)
[2023-04-06] MEDS: NIFEdipine ER 30 MG TAB PO SCH (10:29)
[2023-04-06] MEDS ORDERED: cloNIDine HCL 0.1 MG TAB PO PRN (16:45)
[2023-04-06 20:00] VITALS: PULSE 87
[2023-04-06] MEDS: hydrALAZINE HCL 25 MG TAB PO SCH (21:14)
[2023-04-06] MEDS: ATORVASTATIN 20 MG TAB PO SCH (21:15)
[2023-04-06 22:25] VITALS: BP 182/85; PULSE 90; RESP 18; TEMP 98.3; O2SAT 96
[2023-04-07] VITALS (7 sets, daily range): BP systolic 142–167; BP diastolic 70–77; PULSE 77–130; RESP 16–20; TEMP 97.7–98.2; O2SAT 92–97
[2023-04-07] MEDS: InsuLIN REG 1unit/0.01ml Soln (100units/ml) SC SCH ×4 (05:50→23:19)
[2023-04-07] MEDS: hydrALAZINE HCL 25 MG TAB PO SCH ×3 (05:55→21:01)
[2023-04-07] MEDS: ACCU-CHEK COMFORT CURVE STRIP VI SCH ×4 (06:22→23:15)
[2023-04-07] MEDS: NIFEdipine ER 30 MG TAB PO SCH (10:00)
[2023-04-07] MEDS: LOSARTAN POTASSIUM 50 MG TAB PO SCH (10:01)
[2023-04-07] MEDS: METOPROLOL TARTRATE 50 MG TAB PO SCH ×2 (10:01→21:00)
[2023-04-07] MEDS: LEVOTHYROXINE SODIUM 25 MCG TAB PO SCH (10:07)
[2023-04-07] MEDS: PANTOPRAZOLE 40 MG TAB PO SCH (10:07)
[2023-04-07] MEDS: ATORVASTATIN 20 MG TAB PO SCH (21:01)
[2023-04-07] MEDS ORDERED: ALPRAZolam 0.25 MG TAB PO PRN (21:30)
[2023-04-07] MEDS ORDERED: MELATONIN 5 MG TAB PO PRN (23:45)
[2023-04-08 05:00] VITALS: BP 145/69; PULSE 95; RESP 18; TEMP 98; O2SAT 96
[2023-04-08] MEDS: hydrALAZINE HCL 25 MG TAB PO SCH ×2 (06:31→14:00)
[2023-04-08] MEDS: ACCU-CHEK COMFORT CURVE STRIP VI SCH ×3 (06:32→17:00)
[2023-04-08] MEDS: InsuLIN REG 1unit/0.01ml Soln (100units/ml) SC SCH ×3 (06:35→17:00)
[2023-04-08 08:00] VITALS: BP 152/74; PULSE 121; TEMP 98.3; O2SAT 95
[2023-04-08] MEDS: LOSARTAN POTASSIUM 50 MG TAB PO SCH (09:33)
[2023-04-08] MEDS: PANTOPRAZOLE 40 MG TAB PO SCH (09:34)
[2023-04-08] MEDS: NIFEdipine ER 30 MG TAB PO SCH (09:34)
[2023-04-08] MEDS: METOPROLOL TARTRATE 50 MG TAB PO SCH (09:34)
[2023-04-08] MEDS: LEVOTHYROXINE SODIUM 25 MCG TAB PO SCH (09:34)
[2023-04-08] MEDS ORDERED: LOSA100T58 PO (10:52)
[2023-04-08] MEDS ORDERED: AMLO1TAB23 PO (10:52)
[2023-04-08] MEDS ORDERED: METO-158 PO (10:52)
[2023-04-08] MEDS ORDERED: NIFE90TA75 PO (10:52)
[2023-04-08] MEDS ORDERED: HYDR-4297 PO (10:52)
[2023-04-08 13:05] VITALS: BP 152/74; PULSE 121; TEMP 36.8
[2023-04-08 13:42] VITALS: BP 135/66; TEMP 98.6; O2SAT 91
== END 2023-04-08 17:25 | disposition home or self-care (01) | DRG 305 ==
LOC: ER 08:22 → TELE 13:24 → TELE-WESTW 04-06 18:28
PROVIDERS: ADMIT Nurse Practitioner Family; ATTEND Family Medicine
DX: I16.1 Hypertensive emergency (principal); E03.9 Hypothyroidism, unspecified; E66.01 Morbid (severe) obesity due to excess calories; E11.9 Type 2 diabetes mellitus without complications; I10 Essential (primary) hypertension; M19.90 Unspecified osteoarthritis, unspecified site; H53.8 Other visual disturbances; E78.5 Hyperlipidemia, unspecified; Z79.899 Other long term (current) drug therapy; Z82.49 Family history of ischemic heart disease and other diseases of the circulatory system; Z83.3 Family history of diabetes mellitus; Z71.3 Dietary counseling and surveillance; Z68.37 Body mass index [BMI] 37.0-37.9, adult; Z79.84 Long term (current) use of oral hypoglycemic drugs
CPT/HCPCS: 36415; 70450; 70551; 71045; 80053; 80061; 82962; 83036; 83735; 84443; 84484; 85025; 85610; 85730; 93005; 93306; 93886; 93971; 93975; 96374; G0378; J1815

== ENCOUNTER 2023-05-24 15:21 | Emergency (ER) | payer OTHER, MEDICAID ==
[~2023-05-24] VITALS: Ht 154.9 cm; Wt 89.8 kg
[~2023-05-24 15:21] MED LIST changes: -ALPR0.5T PO; +AMLO1TAB23 PO; +CLON0.2T PO; +HYDR-4297 PO; +LEV25T PO; +METO-158 PO; +NIFE90TA75 PO
[2023-05-24] MEDS ORDERED: KETOROLAC TROMETH 60MG/2ML VIAL IM ONE (18:00)
[2023-05-24 18:15] VITALS: TEMP 99.4
[2023-05-24 18:16] VITALS: BP 187/101; RESP 19; O2SAT 95
[2023-05-24] MEDS ORDERED: cloNIDine HCL 0.1 MG TAB PO ONE (18:45)
[2023-05-24 19:05] LABS: Basophils # (auto) 0.1 10 ^3/uL (0-0.2); Basophils % (auto) 1.1 % (0.0-2.0); Eosinophils # (auto) 0.4 10 ^3/uL (0-0.8); Eosinophils % (auto) 3.1 % (0.0-7.0); Hematocrit 39.5 % (36.0-46.0); Hemoglobin 13.7 g/dL (12.2-16.2); Lymphocytes # (auto) 5.1 10 ^3/uL (0.4-5.4); Lymphocytes % (auto) 43.2 % (10.0-50.0); Mean Corpuscular Hgb Conc. 34.6 g/dL (32.0-36.0); Mean Corpuscular Volume 89.5 fL (80.0-100.0); Monocytes # (auto) 0.5 10 ^3/uL (0-1.3); Monocytes % (auto) 4.6 % (0.0-12.0); Neutrophils # (auto) 5.6 10 ^3/uL (1.6-8.6); Nucleated Red Blood Cells % 0.1 %; Red Blood Cells 4.41 10^6/uL (4.0-5.20); Red Cell Distribution Width 13.9 % (11.8-14.3); White Blood Cell 11.8 10^3/uL (4.4-10.8)
[2023-05-24 19:36] LABS: Albumin 4.3 g/dL (3.2-4.8); Alkaline Phosphatase 98 U/L (46-116); Anion Gap 7 (5-15); BUN/Creatinine Ratio 9.3 (10.0-20.0); Bilirubin, Total < 0.2 mg/dL (0.2-1.0); Blood Urea Nitrogen 9 mg/dL (9-23); Calcium 9.1 mg/dL (8.5-10.1); Carbon Dioxide 27 mmol/L (20-30); Chloride 101 mmol/L (98-107); Glucose 215 mg/dL (74-106); Potassium 3.7 mmol/L (3.5-5.1); Sodium 135 mmol/L (136-145); Total Protein 7.1 g/dL (5.7-8.2)
[2023-05-24 19:39] LABS: Alanine Aminotransferase 18 U/L (7-40); Aspartate Aminotransferase 12 U/L (13-40)
[2023-05-24 19:41] VITALS: PULSE 88
[2023-05-24] MEDS ORDERED: DICL50TA2 PO (19:47)
[2023-05-24] MEDS ORDERED: CLON0.1T PO (19:47)
[2023-05-24] MEDS ORDERED: HYDR-4902 PO (19:47)
== END 2023-05-24 20:04 | disposition home or self-care (01) ==
LOC: ER 15:21
DX: M94.0 Chondrocostal junction syndrome [Tietze] (principal); E11.65 Type 2 diabetes mellitus with hyperglycemia; I10 Essential (primary) hypertension; N64.4 Mastodynia; E11.9 Type 2 diabetes mellitus without complications; E78.5 Hyperlipidemia, unspecified
CPT/HCPCS: 36415; 71046; 80053; 84443; 85025; 93005; 96372; 99285; J1885

== ENCOUNTER 2023-08-11 09:57 | Inpatient (IN) | payer OTHER, MEDICAID ==
[~2023-08-11] VITALS: Ht 160 cm; Wt 119.8 kg
[~2023-08-11 09:57] MED LIST changes: +CLON0.1T PO; +DICL50TA2 PO; +HYDR-4902 PO
[2023-08-11] MEDS ORDERED: ONDANSETRON ODT 4 MG TAB PO ONE (10:45)
[2023-08-11] MEDS ORDERED: MECLIZINE HCL 25 MG TAB PO ONE (10:45)
[2023-08-11 11:30] LABS: Basophils # (auto) 0.1 10 ^3/uL (0-0.2); Basophils % (auto) 0.9 % (0.0-2.0); Eosinophils # (auto) 0.3 10 ^3/uL (0-0.8); Eosinophils % (auto) 3.4 % (0.0-7.0); Hematocrit 39.8 % (36.0-46.0); Hemoglobin 13.3 g/dL (12.2-16.2); Lymphocytes % (auto) 32.4 % (10.0-50.0); Mean Corpuscular Hemoglobin 30.4 pg (28.0-32.0); Mean Corpuscular Hgb Conc. 33.3 g/dL (32.0-36.0); Mean Corpuscular Volume 91.2 fL (80.0-100.0); Monocytes # (auto) 0.5 10 ^3/uL (0-1.3); Monocytes % (auto) 4.9 % (0.0-12.0); Neutrophils # (auto) 5.4 10 ^3/uL (1.6-8.6); Neutrophils % (auto) 58.4 % (37.0-80.0); Nucleated Red Blood Cells % 0.1 %; Red Blood Cells 4.37 10^6/uL (4.0-5.20); Red Cell Distribution Width 13.6 % (11.8-14.3); White Blood Cell 9.3 10^3/uL (4.4-10.8)
[2023-08-11 12:29] LABS: Alanine Aminotransferase 22 U/L (7-40); Albumin 4.5 g/dL (3.2-4.8); Alkaline Phosphatase 87 U/L (46-116); Anion Gap 10 (5-15); Aspartate Aminotransferase 15 U/L (13-40); BUN/Creatinine Ratio 11.1 (10.0-20.0); Bilirubin, Total 0.3 mg/dL (0.2-1.0); Blood Urea Nitrogen 10 mg/dL (9-23); Calcium 9.4 mg/dL (8.7-10.4); Carbon Dioxide 25 mmol/L (20-30); Chloride 104 mmol/L (98-107); Glucose 241 mg/dL (74-106); Magnesium 1.7 mg/dL (1.6-2.6); Potassium 3.9 mmol/L (3.5-5.1); Sodium 139 mmol/L (136-145); Total Protein 7.1 g/dL (5.7-8.2)
[2023-08-11 16:59] VITALS: RESP 14; O2SAT 95
[2023-08-11] MEDS ORDERED: DEXTROSE (50%) 50ML SYRG IV PRN (18:45)
[2023-08-11] MEDS: SODIUM CHLORIDE 0.9% 1,000 ML IV SCH (20:06)
[2023-08-11] MEDS ORDERED: LORazepam 2MG/ML-1ML VIAL IV PRN (20:45)
[2023-08-11 21:16] LABS: Urine Bacteria FEW /hpf (None Seen); Urine Blood Negative /uL (Negative); Urine Clarity Clear (Clear); Urine Color Colorless (Yellow); Urine Protein, UAD 2+ (Negative); Urine Specific Gravity 1.006 (1.001-1.035); Urine Urobilinogen Normal (Negative); Urine WBC 23 /hpf (0 - 5)
[2023-08-11 21:46] VITALS: BP 178/79; PULSE 103; RESP 18; TEMP 98.4; O2SAT 96
[2023-08-11] MEDS: ATORVASTATIN 20 MG TAB PO SCH (22:12)
[2023-08-11] MEDS: METOPROLOL TARTRATE 50 MG TAB PO SCH (22:12)
[2023-08-11] MEDS: hydrALAZINE HCL 25 MG TAB PO SCH (22:12)
[2023-08-11] MEDS: MECLIZINE HCL 25 MG TAB PO SCH (22:12)
[2023-08-11 22:15] VITALS: PULSE 97; RESP 18; O2SAT 98
[2023-08-12] VITALS (11 sets, daily range): BP systolic 104–165; BP diastolic 65–88; PULSE 76–101; RESP 18–20; TEMP 97.4–98.6; O2SAT 93–100
[2023-08-12] MEDS: ACCU-CHEK COMFORT CURVE STRIP VI SCH ×4 (01:51→17:23)
[2023-08-12] MEDS: InsuLIN REG 1unit/0.01ml Soln (100units/ml) SC SCH ×4 (01:57→17:30)
[2023-08-12] MEDS: SODIUM CHLORIDE 0.9% 1,000 ML IV SCH ×2 (04:45→14:33)
[2023-08-12] MEDS: hydrALAZINE HCL 25 MG TAB PO SCH ×3 (06:39→22:38)
[2023-08-12] MEDS: MECLIZINE HCL 25 MG TAB PO SCH ×3 (06:39→22:38)
[2023-08-12] MEDS: ASPirin 81 mg TAB PO SCH (09:43)
[2023-08-12] MEDS: METOPROLOL TARTRATE 50 MG TAB PO SCH ×2 (09:43→22:37)
[2023-08-12] MEDS: ENOXAPARIN SOD 40 MG/0.4 ML SYRINGE SC SCH (09:43)
[2023-08-12] MEDS: hydroCHLOROthiazide 25 MG TAB PO SCH (09:44)
[2023-08-12] MEDS: LEVOTHYROXINE SODIUM 25 MCG TAB PO SCH (09:44)
[2023-08-12] MEDS: LOSARTAN POTASSIUM 50 MG TAB PO SCH (09:44)
[2023-08-12] MEDS: amLODIPine BESYLATE 5 MG TAB PO SCH (09:45)
[2023-08-12] MEDS ORDERED: PATIENTS OWN MEDICATION (Amlodipine Besylate 1 TAB) PO SCH (10:00)
[2023-08-12] MEDS ORDERED: PATIENTS OWN MEDICATION (Nifedipine (Nifedipine Er) 1 TAB) PO SCH (10:00)
[2023-08-12] MEDS: cloNIDine HCL 0.1 MG TAB PO SCH (17:28)
[2023-08-12] MEDS: ATORVASTATIN 20 MG TAB PO SCH (22:38)
[2023-08-13] VITALS (8 sets, daily range): BP systolic 129–173; BP diastolic 72–95; PULSE 72–107; RESP 16–18; TEMP 97.2–98.5; O2SAT 93–97
[2023-08-13] MEDS: SODIUM CHLORIDE 0.9% 1,000 ML IV SCH ×3 (00:45→20:45)
[2023-08-13] MEDS: ACCU-CHEK COMFORT CURVE STRIP VI SCH ×5 (00:50→23:24)
[2023-08-13] MEDS: InsuLIN REG 1unit/0.01ml Soln (100units/ml) SC SCH ×4 (00:56→18:19)
[2023-08-13] MEDS: hydrALAZINE HCL 20 MG/ML VL IV PRN ×2 (01:29→16:40)
[2023-08-13] MEDS: MECLIZINE HCL 25 MG TAB PO SCH ×3 (06:27→23:17)
[2023-08-13] MEDS: hydrALAZINE HCL 25 MG TAB PO SCH ×3 (06:28→22:00)
[2023-08-13] MEDS: ASPirin 81 mg TAB PO SCH (09:03)
[2023-08-13] MEDS: ENOXAPARIN SOD 40 MG/0.4 ML SYRINGE SC SCH (09:03)
[2023-08-13] MEDS: METOPROLOL TARTRATE 50 MG TAB PO SCH ×2 (09:04→23:18)
[2023-08-13] MEDS: hydroCHLOROthiazide 25 MG TAB PO SCH (09:04)
[2023-08-13] MEDS: LOSARTAN POTASSIUM 50 MG TAB PO SCH (09:05)
[2023-08-13] MEDS: amLODIPine BESYLATE 5 MG TAB PO SCH (09:06)
[2023-08-13] MEDS: LEVOTHYROXINE SODIUM 25 MCG TAB PO SCH (09:06)
[2023-08-13] MEDS: cloNIDine HCL 0.1 MG TAB PO SCH (18:14)
[2023-08-13] MEDS: ATORVASTATIN 20 MG TAB PO SCH (23:17)
[2023-08-14] MEDS: InsuLIN REG 1unit/0.01ml Soln (100units/ml) SC SCH ×3 (02:24→12:08)
[2023-08-14 05:00] VITALS: BP 159/70; PULSE 69; RESP 17; TEMP 98.5; O2SAT 96
[2023-08-14] MEDS: ACCU-CHEK COMFORT CURVE STRIP VI SCH ×2 (05:45→12:05)
[2023-08-14] MEDS: hydrALAZINE HCL 25 MG TAB PO SCH (06:00)
[2023-08-14] MEDS: MECLIZINE HCL 25 MG TAB PO SCH (06:28)
[2023-08-14 08:00] VITALS: PULSE 91
[2023-08-14 08:10] VITALS: O2SAT 96
[2023-08-14] MEDS: LEVOTHYROXINE SODIUM 25 MCG TAB PO SCH (09:33)
[2023-08-14] MEDS: METOPROLOL TARTRATE 50 MG TAB PO SCH (09:34)
[2023-08-14] MEDS: hydroCHLOROthiazide 25 MG TAB PO SCH (09:34)
[2023-08-14] MEDS: ASPirin 81 mg TAB PO SCH (09:35)
[2023-08-14] MEDS: amLODIPine BESYLATE 5 MG TAB PO SCH (09:35)
[2023-08-14] MEDS: ENOXAPARIN SOD 40 MG/0.4 ML SYRINGE SC SCH (09:36)
[2023-08-14] MEDS: LOSARTAN POTASSIUM 50 MG TAB PO SCH (09:36)
[2023-08-15 06:07] LABS: RPR Non Reactive (Non Reactive)
== END 2023-08-14 12:45 | disposition home or self-care (01) | DRG 305 ==
LOC: ER 09:57 → TELE 18:41 → TELE-CENTR 22:58
PROVIDERS: ADMIT Nurse Practitioner Family; ATTEND Family Medicine
DX: I16.1 Hypertensive emergency (principal); H81.11 Benign paroxysmal vertigo, right ear; E03.9 Hypothyroidism, unspecified; E66.01 Morbid (severe) obesity due to excess calories; E78.5 Hyperlipidemia, unspecified; G47.00 Insomnia, unspecified; G47.10 Hypersomnia, unspecified; G47.30 Sleep apnea, unspecified; I10 Essential (primary) hypertension; E78.00 Pure hypercholesterolemia, unspecified; Z53.20 Procedure and treatment not carried out because of patient's decision for unspecified reasons; Z79.4 Long term (current) use of insulin; Z82.49 Family history of ischemic heart disease and other diseases of the circulatory system; Z83.3 Family history of diabetes mellitus; Z91.148 Patient's other noncompliance with medication regimen for other reason; Z91.199 Patient's noncompliance with other medical treatment and regimen due to unspecified reason; Z68.35 Body mass index [BMI] 35.0-35.9, adult; E11.65 Type 2 diabetes mellitus with hyperglycemia; I25.2 Old myocardial infarction
CPT/HCPCS: 36415; 70450; 71046; 80053; 81001; 82962; 83735; 83880; 84100; 84443; 84484; 85025; 86592; 93005; 93306; 93886; 95819; 97163; G0378; J1815; Q0162